=== PATIENT | male | born 1955 | race Caucasian/White ===

== ENCOUNTER 2019-12-17 14:29 | Outpatient (REF) | payer SELFPAY | END 2019-12-17 14:30 | disposition home or self-care (01) | LOC: HO.HAP 14:29 | PROVIDERS: Visit Provider Internal Medicine | DX: Z46.1 Encounter for fitting and adjustment of hearing aid (principal) | CPT/HCPCS: V5267 ==

== ENCOUNTER 2020-03-31 14:30 | Outpatient (REF) | payer SELFPAY | END 2020-03-31 14:31 | disposition home or self-care (01) | LOC: HO.HAP 14:30 | PROVIDERS: Visit Provider Internal Medicine | DX: Z46.1 Encounter for fitting and adjustment of hearing aid (principal) | CPT/HCPCS: V5267 ==

== ENCOUNTER 2020-03-31 14:35 | Outpatient (REF) | payer OTHER, SELFPAY | END 2020-03-31 14:36 | disposition home or self-care (01) | LOC: HO.HAP 14:35 | PROVIDERS: Visit Provider Internal Medicine | DX: Z46.1 Encounter for fitting and adjustment of hearing aid (principal) | CPT/HCPCS: V5266 ==

== ENCOUNTER 2020-09-20 13:42 | Outpatient (REF) | payer OTHER, SELFPAY | END 2020-09-20 13:43 | disposition home or self-care (01) | LOC: HO.HAP 13:42 | PROVIDERS: Visit Provider Internal Medicine | DX: Z46.1 Encounter for fitting and adjustment of hearing aid (principal); H90.5 Unspecified sensorineural hearing loss | CPT/HCPCS: 92593 ==

== ENCOUNTER 2020-09-20 14:17 | Outpatient (REF) | payer SELFPAY | END 2020-09-20 14:18 | disposition home or self-care (01) | LOC: HO.HAP 14:17 | PROVIDERS: Visit Provider Family Medicine Geriatric Medicine | DX: Z46.1 Encounter for fitting and adjustment of hearing aid (principal); H90.3 Sensorineural hearing loss, bilateral | CPT/HCPCS: V5267 ==

== ENCOUNTER 2020-10-06 11:52 | Outpatient (REF) | payer OTHER, SELFPAY | END 2020-10-06 11:53 | disposition home or self-care (01) | LOC: HO.HAP 11:52 | PROVIDERS: Visit Provider Family Medicine Geriatric Medicine | DX: Z13.89 Encounter for screening for other disorder (principal) ==

== ENCOUNTER 2021-01-05 14:40 | Outpatient (REF) | payer OTHER, SELFPAY | END 2021-01-05 14:41 | disposition home or self-care (01) | LOC: HO.HAP 14:40 | PROVIDERS: Visit Provider Family Medicine Geriatric Medicine | DX: Z46.1 Encounter for fitting and adjustment of hearing aid (principal); H90.3 Sensorineural hearing loss, bilateral | CPT/HCPCS: V5267 ==

== ENCOUNTER 2021-01-22 13:47 | Outpatient (REF) | payer OTHER, SELFPAY | END 2021-01-22 13:48 | disposition home or self-care (01) | LOC: HO.HAP 13:47 | PROVIDERS: Visit Provider Family Medicine Geriatric Medicine | DX: Z46.1 Encounter for fitting and adjustment of hearing aid (principal); H90.3 Sensorineural hearing loss, bilateral | CPT/HCPCS: V5266 ==

== ENCOUNTER 2021-02-23 09:50 | Outpatient (REF) | payer OTHER, SELFPAY | END 2021-02-23 09:51 | disposition home or self-care (01) | LOC: HO.HAP 09:50 | PROVIDERS: Visit Provider Family Medicine Geriatric Medicine | DX: Z13.89 Encounter for screening for other disorder (principal) ==

== ENCOUNTER 2021-03-20 11:14 | Outpatient (REF) | payer SELFPAY | END 2021-03-20 11:15 | disposition home or self-care (01) | LOC: HO.HAP 11:14 | PROVIDERS: Visit Provider Family Medicine Geriatric Medicine | DX: Z13.89 Encounter for screening for other disorder (principal) ==